=== PATIENT | male | born 1940 | race Caucasian/White ===

== ENCOUNTER → 2021-02-11 | Outpatient (CLI) | payer MEDICARE, BC ==
[~2021-02-11] MED LIST: CLOP75 PO
== END ==
LOC: LAB SHORT 08:10 → PLD 08:10
DX: D48.5 Neoplasm of uncertain behavior of skin (principal)
CPT/HCPCS: 88305

== ENCOUNTER → 2022-03-09 | Outpatient (CLI) | payer OTHER, MEDICARE, BC | END | disposition home or self-care (01) | LOC: LAB SHORT 10:58 | DX: L82.1 Other seborrheic keratosis (principal) | CPT/HCPCS: 88305 ==